=== PATIENT | male | born 1960 | race Caucasian/White ===

== ENCOUNTER 2019-04-12 07:50 | Inpatient (IN) ==
[2019-04-12] MEDS ORDERED: NS 1,000 ML IV ONE ×2 (08:16→10:00)
--- NOTE | 2019-04-12 08:23 | PROVIDER DOCUMENTATION ---
HPI-Abdominal Pain/GI Problem - General Chief Complaint: Abdominal Pain Stated Complaint: RETURN, UPSET STOMACH Time Seen by Provider: 04/12/19 08:09 Source: patient, family Allergies/Adverse Reactions: Patient Allergies Allergy/AdvReac Type Severity Reaction Status Date / Time No Known Allergies Allergy Verified 04/12/19 08:49 Home Medications: Home Medication List Medication Instructions Recorded Confirmed Last Taken Type PRAVAstatin [Pravachol] 40 mg PO QHS 05/29/12 04/12/19 04/09/19 History Naproxen 220 mg PO BID 07/17/12 04/12/19 04/10/19 History Apixaban [Eliquis] 5 mg PO BID 04/15/14 04/12/19 04/10/19 History Sotalol [Betapace] 120 mg PO BID 03/08/15 04/12/19 04/10/19 History Dicyclomine [Bentyl] 10 mg PO 4XDAY 3 Days #12 cap 04/10/19 04/12/19 Unknown Rx Empagliflozin [Jardiance] 25 mg PO DAILY 04/10/19 04/12/19 04/10/19 History Ondansetron Odt [Zofran 4 mg Odt] 4 mg PO Q6H PRN PRN #20 tab 04/10/19 04/12/19 Unknown Rx - History of Present Illness-ABD Nature of Presenting Problems: Patient states that he has had nausia and vomiting for the past 5 days. He had diarrhea also, but it has slowed down. He denies melena or hemtochesia. He does have epigastric pain and diffuse pain. He takes naprosyn bid and is on Eliquis. He denies hemetemesis. last episode of vomiting was this AM just prior to arrival Abdominal Pain Onset Location: reports: epigastric, generalized abdomen Pain Radiation: reports: no radiation Quality of Pain: reports: cramping, sharp Severity in ED: reports: moderate Onset/Duration: reports: 4 days ago Timing: reports: still present Activities at Onset: reports: none Exposure to sick contacts?: No Modifying Factors: improves with: movement, palpation Associated Symptoms: reports: diarrhea, malaise. denies: cough, diaphoresis Last BM: 24 hours ago Dark Stools Present?: reports: none noticed, other (diarrhea) Rectal Bleeding: reports: none Rectal Pain: reports: none Emesis Description: reports: clear. denies: red blood, coffee grounds, blood- streaked Bruising or Bleeding Gums?: No Similar Symptoms Previously?: No Recently seen or treated by another doctor?: Yes (seen in ED on the ) Review of Systems - Adult - REVIEW OF SYSTEMS - ADULT Constitutional: reports: no symptoms reported Eyes: reports: no symptoms reported Ears, Nose, Mouth & Throat: reports: no symptoms reported Cardiovascular: reports: no symptoms reported Respiratory: reports: no symptoms reported Gastrointestinal: reports: see HPI Genitourinary: reports: no symptoms reported Musculoskeletal: reports: no symptoms reported Integumentary: reports: no symptoms reported Neurological: reports: headache/migraines Psychiatric: reports: no symptoms reported Endocrine: reports: no symptoms reported Hematologic/Lymphatic: reports: no symptoms reported Allergic/Immunologic: reports: no symptoms reported Past History - Adult - PAST MEDICAL HISTORY-ADULT Review of Records: reports: Old Records Reviewed, Nursing Assessment Review Physical Exam-General - CONSTITUTIONAL General Appearance: appears well, lethargic - EYES Eyes: PERRL/EOMI, pink conjunctivae - HEAD, EARS, NOSE, MOUTH & THROAT HENMT: normocephalic/atraumatic, TMs normal - NECK Neck: non-tender, full range of motion, supple - RESPIRATORY Respiratory: lungs clear, normal breath sounds, no pleuratic chest pain, no respiratory distress - CARDIOVASCULAR Cardiovascular: normal peripheral pulses, regular rate, rhythm, no edema, no gallop, no JVD, no murmur - GASTROINTESTINAL (ABDOMEN) Abdominal Exam: normal bowel sounds, distended, tenderness (diffusly, but more pronounced in the epigastrum) - LYMPHATIC Lymphatic: no adenopathy - MUSCULOSKELETAL Back Exam: normal inspection, no CVA tenderness, no vertebral tenderness Extremity: normal range of motion, non-tender, normal gait, normal inspection, no pedal edema, no calf tenderness - SKIN Integumentary: normal color, normal turgor, warm/dry - NEUROLOGIC 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, grossly normal, no motor/sensory deficits - PSYCHIATRIC Psych/Mental Status: normal mood/affect, normal thought content Progress - PLAN OF CARE/RESULTS Progress/Plan/Lab Results: Vital Signs - 8 hr 04/12/19 07:58 Temperature 98.5 F Pulse Rate 74 Respiratory Rate 16 Blood Pressure 128/84 O2 Sat by Pulse Oximetry 96 Laboratory Results - last 24 hr 04/12/19 08:11 POC Glucose 84 Orders Category Date Time Status FLAT/UPRIGHT ABD/1 VIEW CHEST [RAD] Stat Exams 04/12/19 08:17 Ordered CBC WITH ELECTRONIC DIFF [HEME] Stat Lab 04/12/19 08:16 Uncollected COMPREHENSIVE METABOLIC PANEL [CHEM] Stat Lab 04/12/19 08:17 Ordered LACTATE, PLASMA [CHEM] Stat Lab 04/12/19 08:18 Uncollected VBG [VENOUS BLOOD GAS] [RESP] Stat Lab 04/12/19 08:17 Uncollected 0.9% Sodium Chloride Inj [Ns] 1,000 ml Med 04/12/19 08:16 Active IV 999 mls/hr Result Diagrams: 04/12/19 08:22 04/12/19 08:22 Departure - Departure Date of Disposition Decision: 04/12/19 Time of Disposition Decision: 15:13 DIAGNOSIS: Small bowel obstruction Disposition: ADMITTED INPATIENT 09 Certified Medical Emergency: Emergent Condition: Fair - Critical Care Note This patient required my direct & personal management of CC.: No Attestation - Physician/ NICOLE Attestation Patient care was provided by Advanced Practice Provider:: No The physician spent face to face time with patient:: Yes Advanced Practice Provider documentation review:: Supervising physician onsite and consulted in the evaluation and care of this patient. The physician did have a face to face encounter with the patient.
[2019-04-12 08:41] LABS: BASO# 0.04 X1000 (0.0-0.2); BASO% 0.6 % (0.0-0.8); EOS# 0.01 X1000 (0.0-0.7); EOS% 0.1 % (0.0-10.0); HEMATOCRIT 50.5 % (42.0-52.0); HEMOGLOBIN 16.9 g/dL (14.0-18.0); LYMPH% 16.6 % (20.5-51.1); MCHC 33.5 g/dL (33-37); MCV 89.5 FL (81-99); MONO# 1.47 X1000 (0.11-0.59); MONO% 20.3 % (1.7-9.3); MPV 8.5 FL (7.4-10.4); NEUT# 4.53 X1000 (1.4-6.5); NEUT% 62.4 % (42.2-75.2); PLT 299 X1000 (130-400); RBC 5.64 XMIL (4.7-6.1); WBC 7.25 X1000 (4.8-10.8)
[2019-04-12 08:44] LABS: BE 1.9 mmoll (-2.0-2.0); BLOOD TYPE VENOUS; HCO3-(ACT) 25.8 mmoll (22-27); PCO2(98.6) 41 mmHg (40-60); PO2(98.6) 41 mmHg (30-55); SAMPLE BLOOD; SAO2 81.6 % (40.0-85.0); pH(98.6) 7.42 (7.32-7.43)
[2019-04-12 08:58] LABS: AGAP 19; ALB/GLOB RATIO 1.3; ALBUMIN 4.4 g/dL (3.5-5.0); ALKALINE PHOSPHATASE 67 U/L (32-122); BUN 27 mg/dL (8-22); CALCIUM 9.3 mg/dL (8.8-10.2); CHLORIDE 94 mmol/L (98-107); COSMO 282; CREATININE 0.8 mg/dL (0.7-1.2); ESTIMATED GFR > 60; GLUCOSE 92 mg/dL (70-104); GOT 10 U/L (10-34); GPT 12 U/L (10-44); POTASSIUM 3.7 mmol/L (3.5-5.1); SODIUM 139 mmol/L (136-145); TCO2 26 mmol/L (25-35); TOTAL BILIRUBIN 0.88 mg/dL (0.20-1.00); TOTAL PROTEIN 7.9 g/dL (6.3-8.3)
[2019-04-12 09:03] LABS: BANDS 1 % (0-1); BASO 1 % (0-1); LYMPHS 20 % (21-51); MONO 13 % (1-9); SEGS 65 % (42-75)
[2019-04-12] MEDS ORDERED: PHENERGAN IV ONE (09:12)
[2019-04-12] MEDS ORDERED: SODIUM CHLORIDE 0.9% INJ ONE (09:12)
--- NOTE | 2019-04-12 09:21 | Diag Imaging Result Doc PS360 ---
EXAM: FLAT/UPRIGHT ABD/1 VIEW CHEST - 04/12/2019 HISTORY: abd pain TECHNIQUE: Portable supine and upright abdomen one view chest COMPARISON: 10/29/2014 chest two views FINDINGS: There is gaseous distention of multiple small bowel loops. There is some gas visible in nondistended colon and rectum. There is no discrete free air identified. Upright chest shows stable mild cardiomegaly. Lungs appear clear except for mild basilar subsegmental atelectasis. There is no pleural effusion or pneumothorax identified. IMPRESSION: Gaseous small bowel distention. Developing small bowel obstruction cannot be excluded. Stable mild cardiomegaly. Mild subsegmental atelectasis at lung bases. Electronically signed by Ilia Sheth 04/12/2019 9:19 AM
[2019-04-12] MEDS ORDERED: ZOFRAN IV PRN (10:00)
[2019-04-12] MEDS ORDERED: DULCOLAX PR PRN (12:37)
[2019-04-12] MEDS ORDERED: LOVENOX SUBQ SCH (12:45)
[2019-04-12 13:27] LABS: URINE SOURCE CATH
[2019-04-12] MEDS: TORADOL IV PRN ×2 (13:32→22:08)
[2019-04-12 13:34] LABS: BILIRUBIN URINE NEGATIVE (NEGATIVE); BLOOD URINE MODERATE (NEGATIVE); COLOR YELLOW; GLUCOSE URINE >1000 mg/dL (NEGATIVE); KETONE URINE >150 mg/dL (NEGATIVE); LEUKOCYTES URINE NEGATIVE (NEGATIVE); NITRITE URINE NEGATIVE (NEGATIVE); PH URINE 5.5; PROTEIN URINE TRACE mg/dL (NEGATIVE); SP GRAVITY URINE 1.041; TURBIDITY URINE CLEAR (CLEAR); UROBILINOGEN URINE NORMAL (NORMAL)
[2019-04-12 13:37] LABS: UR EPITHELIAL CELLS <10 /HPF (<10); URINE BACTERIA NEGATIVE /HPF; URINE WBC <10 /HPF (<10)
[2019-04-12 13:42] LABS: URINE CASTS NONE SEEN; URINE CRYSTALS NONE SEEN; URINE SMALL ROUND CELLS NONE SEEN; URINE YEAST NONE SEEN
--- NOTE | 2019-04-12 14:24 | Diag Imaging Result Doc PS360 ---
EXAM: CT ABD/PELVIS W/IV CONT ONLY - 04/12/2019 HISTORY: bowel obstruction TECHNIQUE: CT abdomen/pelvis with intravenous contrast. No oral contrast administered per request of the referring provider. COMPARISON: 09/28/2015 CT renal stone search without contrast FINDINGS: There is moderate distention of proximal and mid small bowel with fluid and air. The distal small bowel is nondistended but contains fluid. There is apparent transition from distended to nondistended at the lower abdomen at the midline and to the right of midline. There is no discrete obstructing lesion identified. The small bowel distention may relate to developing small bowel obstruction or to enteritis. The appendix is unremarkable. There is no free air, free fluid, or abscess identified. There are nonspecific small mesenteric lymph nodes at the right lower quadrant. There are no substantial abnormalities of the liver, spleen, adrenal glands, or pancreas identified. There are no calcified gallstones or pericholecystic inflammation identified. The bilateral kidneys enhance homogeneously. There is a 10 mm nonobstructing stone in the left renal pelvis. There is no hydronephrosis. There is uncomplicated colonic diverticulosis. There is a Hickey catheter in the urinary bladder. There are no substantial enlarged lymph nodes identified. There are lumbar spine degenerative changes, with apparent multilevel spinal stenosis, noted. IMPRESSION: Moderate distention of proximal and mid small bowel. There is apparent transition from distended to nondistended small bowel at the lower abdomen at the midline and to the right of midline. There is no discrete obstructing lesion identified. The small bowel distention may relate to developing small bowel obstruction or to enteritis. No abscess. No free air. 10 mm nonobstructing stone in left renal pelvis. No hydronephrosis. Lumbar spine degenerative changes with apparent multilevel spinal stenosis noted. This exam was performed using automated exposure control, adjustment of mA or kV according to patient size, and/or use of iterative reconstruction technique. Electronically signed by Ilia Sheth 04/12/2019 2:22 PM
[2019-04-12] MEDS: NEXIUM IV SCH (14:25)
[2019-04-12] MEDS ORDERED: REGLAN IV PRN (14:42)
--- NOTE | 2019-04-12 15:29 | HISTORY AND PHYSICAL ---
CHIEF COMPLAINT: Gastroenteritis symptoms since Saturday. HISTORY OF PRESENT ILLNESS: This is a 58-year-old, pleasant white gentleman, patient of Dr. Elena. He was seen on Saturday with gastroenteritis symptoms, nausea, vomiting, and abdominal cramps. He was given saline and sent home. He returned to the emergency room again today with abdominal distention and nausea. Prior history of umbilical hernia surgery by Dr. Song. X-rays reviewed. Marked distention of the small bowel. No air-fluid levels present. He is passing minimal gas. No bowel movement; last was 3 days ago. He was dehydrated and started on IV fluids. Symptomatic treatment for nausea and pain medicines with Toradol. He is not taking any pain medications. He had a colonoscopy done in the past by Dr. López. Bladder scan revealed 540 mL of urine. Not able to void. Hickey was placed. He was seen on the floor along with the family members. CT scan of the abdomen and pelvis was done and showed moderate distention of the proximal, mid, and small bowel. No evidence of obstruction noted. No abscess. No free air. A 10 mm stone in the left renal pelvis. Arthritic changes in the lumbar spine. No gallstones. Findings discussed with the patient. We will hydrate. Symptomatic treatment and n.p.o. except ice chips and follow up on the x-ray in the morning. PAST MEDICAL HISTORY: 1. Metabolic syndrome. 2. Hyperlipidemia. 3. Type 2 diabetes. 4. Paroxysmal atrial fibrillation. 5. Obstructive sleep apnea. 6. Lumbar spinal stenosis. 7. History of kidney stones seen by Dr. Burnett in the past. ALLERGIES: Not known. MEDICATIONS: Pravachol 40 mg daily. Naproxen 220 p.o. b.i.d. Eliquis 5 mg p.o. b.i.d. Sotalol 120 p.o. b.i.d. Zofran 4 mg ODT as needed. Jardiance 25 daily. Bentyl as needed. PAST SURGICAL HISTORY: Reported umbilical hernia surgery, right knee arthroplasty. Knee arthroscopy on the left side, ganglion cyst was removed. HEALTH MAINTENANCE: Dr. López did a colonoscopy. Details are not known. SOCIAL HISTORY: He is . Lives in [place]. Two children. Works in [employer]. No smoking. No alcohol. FAMILY HISTORY: Reported mother had [place]'s disease. Brother had ALS. Father of heart attack. REVIEW OF SYSTEMS: HEENT: No headache. No vision problem. No earache. No sore throat. Neck: No goiter. No lymphadenopathy. No bruit. Cardiopulmonary: No chest pain, shortness of breath, palpitations, PND, or orthopnea. GI: Nausea, vomiting, abdominal cramps, obstipation. : No history of hesitancy, frequency, dysuria. No hernias. No swelling of legs. Joint pains in the back, hands, and also knees. Neurologic: No focal symptoms or weakness. PHYSICAL EXAMINATION: VITAL SIGNS: Temperature is 97.9 degrees, pulse 69, blood pressure is 103/53, height 6 feet 5 inches, weight 286 pounds. HEENT: Atraumatic, normocephalic. Pupils equal, react to light. TMs are normal. Nose and throat within normal limits. NECK: Supple. No lymphadenopathy. CHEST: Bilateral air entry. HEART: Sounds are regular. No murmur. ABDOMEN: Belly is soft. Distended. Tympanic note. No signs of peritonitis. Scar present below the umbilical hernia. No inguinal hernia noted. RECTAL: Deferred. EXTREMITIES: No peripheral edema, cyanosis. NEUROLOGIC: No obvious neurological deficits. INVESTIGATIONS: CBC: White cell count 7.2, hematocrit 50, platelet count 299,000. ABG; pH is 7.42, pCO2 of 40, venous blood gas. Sodium 139, potassium 3.7, BUN 27, creatinine 0.8. Liver function tests were normal. A1c reported 5.9. Last PSA screen 0.84 in June 2018. Urinalysis has moderate ketones and blood. KUB with distended small bowel ileus versus partial small-bowel obstruction and atelectasis. CT scan of the abdomen and pelvis. 1. Colonic diverticulosis. 2. A 1 cm nonobstructive stone in the left renal pelvis. 3. Lumbar spinal stenosis. 4. Moderate distention of the proximal and mid small bowel. ASSESSMENT: A 58-year-old white gentleman admitted to the hospital with nausea, vomiting, abdominal pain, distended small-bowel, ileus versus enteritis. PLAN: 1. IV fluids. 2. Hickey catheter. 3. Reglan versus Zofran. 4. Diet, n.p.o. except ice chips. 5. IV Nexium. Dulcolax as needed. IV fluids. 6. If things do not get better, consider small-bowel follow-through. Hold off on NG tube. 7. The patient did take the Eliquis last night. We will hold the home medications until the nausea subsides. Repeat the labs in the morning as well as amylase and flat/upright of the abdomen. Incentive spirometry. Continue 3d animator. 8. Discussed the plan of care with the family at bedside, and Dr. Elena is going to follow up. cc: Pierce Savage MD
[2019-04-13 07:06] LABS: BASO# 0.04 X1000 (0.0-0.2); BASO% 0.7 % (0.0-0.8); EOS# 0.08 X1000 (0.0-0.7); EOS% 1.3 % (0.0-10.0); HEMATOCRIT 46.5 % (42.0-52.0); HEMOGLOBIN 15.3 g/dL (14.0-18.0); LYMPH# 1.32 X1000 (1.2-3.4); LYMPH% 21.7 % (20.5-51.1); MCH 29.8 PG (27-31); MCHC 32.9 g/dL (33-37); MCV 90.6 FL (81-99); MONO# 1.07 X1000 (0.11-0.59); MONO% 17.6 % (1.7-9.3); MPV 8.6 FL (7.4-10.4); NEUT# 3.58 X1000 (1.4-6.5); NEUT% 58.7 % (42.2-75.2); PLT 278 X1000 (130-400); RBC 5.13 XMIL (4.7-6.1); RDW 13.1 % (11.5-14.5); WBC 6.09 X1000 (4.8-10.8)
[2019-04-13 07:33] LABS: AGAP 18; ALBUMIN 3.5 g/dL (3.5-5.0); ALKALINE PHOSPHATASE 59 U/L (32-122); AMYLASE 64 U/L (20-200); BUN 25 mg/dL (8-22); CALCIUM 8.5 mg/dL (8.8-10.2); CHLORIDE 101 mmol/L (98-107); COSMO 282; CREATININE 0.6 mg/dL (0.7-1.2); ESTIMATED GFR > 60; GLUCOSE 75 mg/dL (70-104); GOT 9 U/L (10-34); GPT 9 U/L (10-44); POTASSIUM 3.7 mmol/L (3.5-5.1); SODIUM 140 mmol/L (136-145); TCO2 21 mmol/L (25-35); TOTAL BILIRUBIN 0.58 mg/dL (0.20-1.00); TOTAL PROTEIN 6.9 g/dL (6.3-8.3)
--- NOTE | 2019-04-13 07:37 | EKG Report ---
Test Performed on : 04/13/2019 06:48:30 AM Test Reason : cp Blood Pressure : / mmHG Vent. Rate : 065 BPM Atrial Rate : 065 BPM P-R Int : 150 ms QRS Dur : 090 ms QT Int : 422 ms P-R-T Axes : 052 034 020 degrees QTc Int : 438 ms Normal sinus rhythm. Normal ECG When compared with ECG of 29-OCT-2014 06:34, Sinus rhythm. has replaced Atrial fibrillation. Confirmed by Edilberto Hicks MD ([id number]) on 04/13/2019 9:00:14 AM
--- NOTE | 2019-04-13 10:10 | Diag Imaging Result Doc PS360 ---
EXAM: ABDOMEN FLAT/UPRIGHT 04/13/2019 HISTORY: pain TECHNIQUE: Flat and upright abdomen COMMENT: There are apparent calculi in the left kidney. This was also evident on the previous study of 04/12/2019. Compared to the previous study there is less dilatation of small bowel. There is more apparent colonic gas. There is no evidence of organomegaly or mass. IMPRESSION: Improved small bowel obstruction and/or ileus. Left nephrolithiasis. Electronically signed by Avery He 04/13/2019 10:07 AM
[2019-04-13] MEDS: NEXIUM IV SCH (12:41)
[2019-04-13] MEDS: SODIUM CHLORIDE 0.9% INJ SCH (12:41)
[2019-04-13] MEDS ORDERED: ZOFRAN ODT PO PRN (13:04)
--- NOTE | 2019-04-13 14:22 | PROGRESS NOTE ---
DATE: 04/13/2019 SUBJECTIVE: Patient overall is feeling better. No nausea. I had seen him earlier this morning. He was passing some gas and not had pain bowel movements. He did note he had what he thought was a stomach virus earlier last week and then developed difficulty then with a partial small bowel obstruction. OBJECTIVE: Afebrile. Vital signs stable. CV: RRR without murmur. Lungs: CTA. Abdomen: Protuberant. Active bowel sounds. No pinpoint tenderness. Extremities: No edema. Neurologic: Nonfocal. Lab Data: Shows white count of 6, hemoglobin 15.3, platelets 278,000. CMP unremarkable. Potassium of 3.7, sodium 140, BUN 25, creatinine 0.6, glucose is 75. LFTs, amylase normal. Plasma lactate yesterday 1.7. Urinalysis negative except for some moderate blood. KUB this morning shows improvement in small bowel obstruction, left nephrolithiasis. ASSESSMENT: 1. Small bowel obstruction, improved. 2. Obesity. 3. Paroxysmal atrial fibrillation, on chronic anticoagulation with Eliquis, status post cardioversion, successful. 4. Type 2 diabetes mellitus. 5. Hyperlipidemia. 6. Obstructive sleep apnea. 7. History of lumbar spinal stenosis. 8. History of kidney stones, followed by Dr. Burnett. PLAN: We will advance the diet. He was advanced this morning to clear liquids and did well on that. We will increase to diabetic diet. Ambulate the patient. Continue IV Nexium. Possible discharge late this evening if he continues to do well. cc: MD Pierce Gutiérrez MD
[2019-04-13] MEDS: TORADOL IV PRN (16:17)
[2019-04-13] MEDS: SODIUM CHLORIDE 0.9% INJ PRN ×2 (18:52→23:27)
[2019-04-13] MEDS: NS + KCL 20 MEQ 1,000 ML IV SCH (18:52)
[2019-04-13] MEDS: PHENERGAN IV PRN ×2 (18:52→23:26)
[2019-04-13] MEDS: DILAUDID IV PRN ×2 (18:52→23:27)
[2019-04-13] MEDS: PRAVACHOL PO SCH (23:33)
[2019-04-13] MEDS: BETAPACE PO SCH (23:33)
[2019-04-13] MEDS: ELIQUIS PO SCH (23:33)
--- NOTE | 2019-04-14 08:39 | PROGRESS NOTE ---
DATE: 04/14/2019 SUBJECTIVE: The patient had an explosive episode of emesis last evening about 11:30 p.m. He has had no major nausea this morning. He has been passing gas, feeling better overall this morning. OBJECTIVE: Vital signs: Afebrile, pulse 71, respirations 20, blood pressure 120/78, O2 saturation 98% on room air. Cardiovascular: Regular rate and rhythm without murmur. Lungs: Clear. Abdomen: Protuberant, soft. Active bowel sounds. No point tenderness. Extremities: No calf tenderness, cords or edema. Neurologic: Nonfocal. Cranial nerves intact. IMAGING: KUB has not yet been done this morning but is ordered. ASSESSMENT: 1. Small-bowel obstruction. 2. Obesity. 3. Paroxysmal atrial fibrillation on chronic anticoagulation with Eliquis, status post successful cardioversion in the past. 4. Type 2 diabetes mellitus. 5. Hyperlipidemia. 6. Obstructive sleep apnea. 7. History of lumbar spinal stenosis. 8. History of kidney stones, followed by Dr. Burnett. PLAN: Continue IV fluids, Phenergan p.r.n. He is on IV Nexium. We will continue clear liquids this morning. We had changed him back from a diabetic diet to clear liquids late yesterday after he had pronounced episode of nausea again and emesis. We will review the KUB to be done later this morning. Consider Dulcolax suppository x1 later today. cc: MD Pierce Gutiérrez MD
--- NOTE | 2019-04-14 09:33 | Diag Imaging Result Doc PS360 ---
EXAM: KUB ABDOMEN - 04/14/2019 HISTORY: sbo TECHNIQUE: KUB abdomen COMPARISON: 04/13/2019 FINDINGS: There is mild gaseous small bowel distention which has decreased compared to prior. There is gas visible in nondistended colon. There are calcified stones again noted in the left kidney. IMPRESSION: Mild gaseous small bowel distention which has decreased compared to prior. Electronically signed by Ilia Sheth 04/14/2019 9:31 AM
[2019-04-14] MEDS: BETAPACE PO SCH ×2 (09:58→21:40)
[2019-04-14] MEDS: ELIQUIS PO SCH ×2 (09:58→21:40)
[2019-04-14] MEDS: NS + KCL 20 MEQ 1,000 ML IV SCH (13:09)
[2019-04-14] MEDS: SODIUM CHLORIDE 0.9% INJ SCH (13:09)
[2019-04-14] MEDS: NEXIUM IV SCH (13:10)
[2019-04-14] MEDS: PRAVACHOL PO SCH (21:40)
[2019-04-15] MEDS: NS + KCL 20 MEQ 1,000 ML IV SCH ×2 (03:39→09:46)
[2019-04-15 06:44] LABS: BASO# 0.04 X1000 (0.0-0.2); BASO% 0.5 % (0.0-0.8); EOS# 0.17 X1000 (0.0-0.7); EOS% 2.1 % (0.0-10.0); HEMOGLOBIN 16.3 g/dL (14.0-18.0); IMM GRAN# 0.05 X1000 (0.0-0.04); IMM GRAN% 0.6 % (0.0-0.5); LYMPH% 18.5 % (20.5-51.1); MCH 30.2 PG (27-31); MCHC 33.3 g/dL (33-37); MCV 90.7 FL (81-99); MONO# 0.86 X1000 (0.11-0.59); MONO% 10.6 % (1.7-9.3); MPV 8.6 FL (7.4-10.4); NEUT# 5.48 X1000 (1.4-6.5); NEUT% 67.7 % (42.2-75.2); PLT 303 X1000 (130-400); RDW 13.2 % (11.5-14.5)
[2019-04-15 07:09] LABS: AGAP 10; BUN 8 mg/dL (8-22); CALCIUM 8.6 mg/dL (8.8-10.2); CHLORIDE 100 mmol/L (98-107); COSMO 274; CREATININE 0.7 mg/dL (0.7-1.2); ESTIMATED GFR > 60; GLUCOSE 101 mg/dL (70-104); POTASSIUM 3.4 mmol/L (3.5-5.1); SODIUM 138 mmol/L (136-145); TCO2 28 mmol/L (25-35)
[2019-04-15] MEDS ORDERED: DULCOLAX PR ONE (08:41)
--- NOTE | 2019-04-15 09:16 | Diag Imaging Result Doc PS360 ---
EXAM: ABDOMEN FLAT/UPRIGHT INDICATION: sbo TECHNIQUE: 4 views COMPARISON: 04/14/2019 FINDINGS: Mild gaseous distention of small bowel is again identified. It may be slightly worse than the previous study. No large volume free abdominal gas is appreciated. There is stable nephrolithiasis on the left. IMPRESSION: Questionable slight worsening of gaseous distention of small bowel. Electronically signed by Patrick Valdez 04/15/2019 9:14 AM
[2019-04-15] MEDS: ELIQUIS PO SCH ×2 (09:42→20:39)
[2019-04-15] MEDS: BETAPACE PO SCH ×2 (09:42→20:39)
--- NOTE | 2019-04-15 13:57 | PROGRESS NOTE ---
DATE: 04/15/2019 SUBJECTIVE: Patient was sitting up in a chair this morning when I saw him. He says he feels slightly better. He had a very small bowel movement early this morning and had a small one yesterday evening. He has had no nausea, no vomiting. Still some mild cramping of the abdomen. OBJECTIVE: Vital signs: Afebrile, pulse 74, respirations 20, blood pressure 115/72, O2 saturation 98 to 100 percent on room air. Cardiovascular: Regular rate and rhythm. Lungs: Clear to auscultation. Abdomen: Soft, protuberant. No major distention. Active bowel sounds. Extremities: No calf tenderness, cords or edema. Neurologic: Cranial nerves 2-12 are intact. No focal deficits. LABORATORY DATA: White count 8.1, hemoglobin 16.3, platelets 303,000. Sodium 138, potassium 3.4, chloride 100, CO2 28, BUN 8, creatinine 0.7, calcium 8.6. IMAGING: Flat and upright of the abdomen today shows possible slight worsening of gaseous distention of the small bowel compared to yesterday. Clinically, patient seems improved. ASSESSMENT: 1. Small -bowel obstruction. Slow gradual improvement clinically. 2. Obesity. 3. Paroxysmal atrial fibrillation on chronic Eliquis treatment. 4. Type 2 diabetes mellitus. 5. Hyperlipidemia. 6. Obstructive sleep apnea. 7. History of lumbar spinal stenosis. 8. History of kidney stones. PLAN: We will give him a Dulcolax suppository. We had removed his Hickey catheter last evening and we will reduce his IV fluids slightly, increase him from clear liquids to full liquids. Continue IV Nexium with p.r.n. Phenergan. Ambulate the patient. If he continues to clinically improve, he might be able to go home as early as tomorrow. We will repeat a flat and upright of the abdomen in the morning. cc: MD Pierce Gutiérrez MD
[2019-04-15] MEDS: SODIUM CHLORIDE 0.9% INJ SCH (14:07)
[2019-04-15] MEDS: NEXIUM IV SCH (14:07)
[2019-04-15] MEDS ORDERED: SODIUM CHLORIDE 0.9% INJ SCH (14:28)
[2019-04-15] MEDS: PRAVACHOL PO SCH (20:39)
[2019-04-16] MEDS: NS + KCL 20 MEQ 1,000 ML IV SCH ×2 (07:05→15:54)
[2019-04-16] MEDS ORDERED: FLU VACCINE IM ONE (08:24)
[2019-04-16] MEDS: BETAPACE PO SCH ×2 (08:26→21:24)
[2019-04-16] MEDS: ELIQUIS PO SCH ×2 (08:27→21:24)
--- NOTE | 2019-04-16 10:15 | Diag Imaging Result Doc PS360 ---
ABDOMEN FLAT/UPRIGHT - 04/16/2019 INDICATION: sbo COMPARISON: 04/15/2019 FINDINGS: There are some persistent abnormally distended loops of small bowel filling the left mid abdomen. These measure up to 4 cm. This is essentially identical to the prior CT from 04/12/2019. There is a stable stone in the left kidney as well. There is gas and stool throughout the colon. No definite rectal gas. IMPRESSION: Partial small bowel obstruction. No change from prior. Electronically signed by Pastor Cortes 04/16/2019 10:13 AM
[2019-04-16] MEDS ORDERED: DULCOLAX PR ONE (13:49)
[2019-04-16] MEDS ORDERED: PROTONIX IV SCH (14:00)
[2019-04-16] MEDS: PRAVACHOL PO SCH (21:24)
--- NOTE | 2019-04-17 01:52 | GENERAL SURGERY CONSULTATION ---
DATE: 04/16/2019 CHIEF COMPLAINT: Nausea vomiting. REASON FOR CONSULTATION: Bowel obstruction. HISTORY OF PRESENT ILLNESS: This is a 58-year-old gentleman with medical history significant for metabolic syndrome, hyperlipidemia, diabetes, atrial fibrillation, obstructive sleep apnea and nephrolithiasis. His surgical history is consistent for an open umbilical hernia repair, who presented several days ago and was admitted for symptoms consistent with a partial bowel obstruction. He had approximately 24 hours of nausea, vomiting, colicky abdominal pain, but since admission, his bowel function returned, nausea, vomiting has resolved, and he only has intermittent crampy pains. No fevers. No tachycardia. CT scan was obtained on arrival. He has had x-rays that show air in the colon since. MEDICAL HISTORY: As noted in his HPI. SURGICAL HISTORY: Open umbilical hernia repairs as well as several orthopedic procedures. SOCIAL HISTORY: No tobacco, alcohol, drugs. MEDICATIONS: Takes Eliquis and other medications. FAMILY HISTORY: Reviewed, negative for colon or rectal malignancies. Colonoscopy history, he has had a colonoscopy, apparently, with benign findings in the recent past. REVIEW OF SYSTEMS: Ten-point review of systems negative other than what is mentioned in HPI. PHYSICAL EXAMINATION: Vital signs: On exam, he is afebrile, pulse 67, blood pressure 114/70, oxygen saturation is 90%. General: He is alert. HEENT: No scleral icterus. No cervical mass. Cardiovascular: Normal rate. Pulmonary: No increased work of breathing. Abdomen: Soft. It is obese, but nontender, nondistended. Infraumbilical incision is well healed with no recurrent hernia. Integument: Warm, dry. Psychiatric: Appropriate affect. Neurologic: No gross deficits. Lymphatic: No cervical axillary or inguinal adenopathy. LABS: White count 8, hematocrit 49, platelets 303,000. Creatinine 0.7. LFTs are normal on admission. Urinalysis is negative for nitrates. ASSESSMENT AND PLAN: A 58-year-old gentleman admitted with a partial bowel obstruction, seems to have resolved clinically. He is tolerating a diet. He did have a large number of apples prior to admission and I suspect that the high fibrous diet may be the result of this. I have encouraged him to remain on a soft diet. Otherwise, I can follow with him as an outpatient. Suspect this is related to adhesive disease from his hernia repair. He can see Dr. Song as well, if indicated, but surgically I suspect he can go home in the near future. cc: MD Pierce Borges MD
[2019-04-17 07:30] VITALS: BP 106/76
[2019-04-17] MEDS: ELIQUIS PO SCH (09:21)
[2019-04-17] MEDS: BETAPACE PO SCH (09:21)
[2019-04-17] MEDS: NS + KCL 20 MEQ 1,000 ML IV SCH (09:34)
--- NOTE | 2019-04-17 13:00 | GENERAL SURGERY PROGRESS NOTE ---
DATE: 04/17/2019 SUBJECTIVE: Doing well. He continues to have bowel function. No abdominal pain. No nausea or vomiting. OBJECTIVE: He is alert. His abdomen is soft and nontender. Integument is warm and dry. Reviewed his labs and vital signs. ASSESSMENT AND PLAN: This is a 58-year-old gentleman patient of Dr. Elena'juan antonio who presented with a bowel obstruction, most likely related to adhesions and recent ingestion of large amount of fibrous food. We discussed low residual soft diet going forward. Encourage daily stool softener. We will be happy to follow him as an outpatient as needed. cc: MD Pierce Borges MD
== END 2019-04-17 10:44 | disposition home or self-care (01) | DRG 390 ==
LOC: ED 07:50 → 4N 07:51
PROVIDERS: ADMIT Internal Medicine; ATTEND Family Medicine